=== PATIENT | female | born 1960 | race Hispanic/Latino ===

== ENCOUNTER 2024-12-20 06:11 | Day surgery (SDC) | payer OTHER, MEDICARE ==
[2024-12-19 16:28] VITALS: BP 154/80; PULSE 99; RESP 18; TEMP 98.1
[2024-12-19 16:32] LABS: NUCLEATED RED BLOOD CELLS 0.0 % (0.0-0.19); PLATELET COUNT (AUTO) 201.0 K/uL (130-400); RED BLOOD CELL COUNT(AUTO) 3.33 MIL/uL (4.00-5.50); RED CELL DISTRIBUTION WIDTH 14.4 % (11.0-15.5); WHITE BLOOD COUNT (AUTO) 7.4 K/uL (4.8-10.8)
[2024-12-19 16:41] LABS: INR 1.08 (0.85-1.15)
[2024-12-19 16:42] LABS: CREATININE 5.4 mg/dL (0.5-1.0); GLOMERULAR FILTR. RATE CALC 8.0 mL/min (>90); GLUCOSE,RANDOM 97.0 mg/dL (70-105); SODIUM SERUM 136.0 mmol/L (136-145); UREA NITROGEN, BLOOD 25.0 mg/dL (7-18)
--- NOTE | 2024-12-19 19:42 | HMCIMG ---
EXAM: CR Chest, 1 View. CLINICAL HISTORY: R COMPARISON: None provided. FINDINGS: LUNGS: There is no mass, infiltrate, or acute pulmonary abnormality. PLEURAL SPACES: No pleural effusion or pneumothorax. MEDIASTINUM: Cardiac silhouette prominent BONES: No acute osseous abnormality. MISCELLANEOUS: Left venous line middle third SVC IMPRESSION: 1. Cardiac silhouette prominent 2. Left venous line middle third SVC /[place]
[~2024-12-20] VITALS: Ht 157.5 cm; Wt 93.8 kg
[2024-12-20] VITALS (17 sets, daily range): BP systolic 92–146; BP diastolic 38–61; PULSE 72–100; RESP 15–20; TEMP 97.5–97.9
[~2024-12-20 06:11] MED LIST: CINA30 PO; FAMO20TA8 PO; LOSA100T59 PO; OMEGA PO; SEVELAMER CARBONATE PO
--- NOTE | 2024-12-20 06:34 | EKG ---
[facility] Test Date: 2024-12-19 Test Time: 16:16:03 Pat Name: DOROTHY RAYMUNDO Department: [facility], [facility] Room: [facility] Gender: F Lead Inspector: [id number] : 1960 Requested By: GILBERT CARMEN Order Number: [id number] Reading MD: Treovr Hsieh Measurements Intervals [place] Rate: 101 P: 0 NV: 0 QRS: 13 QRSD: 84 T: 0 QT: 370 QTc: 481 Interpretive Statements Atrial fibrillation Low voltage, precordial leads Consider anterior infarct No previous ECG available for comparison Electronically Signed On 12-20-2024 12:02:44 CDT by Trevor Hsieh Please click the below link to view image of tracing.
[2024-12-20 07:18] LABS: CREATININE 6.9 mg/dL (0.5-1.0); GLOMERULAR FILTR. RATE CALC 6.0 mL/min (>90); GLUCOSE,RANDOM 91.0 mg/dL (70-105); SODIUM SERUM 133.0 mmol/L (136-145); UREA NITROGEN, BLOOD 36.0 mg/dL (7-18)
[2024-12-20] MEDS: 0.9% NACL 500ML IV.SOLN 500 ML IV ONE (07:23)
[2024-12-20] MEDS: CLINDAMYCIN IVPB 600MG/50ML 50 ML IV ONE (07:23)
[2024-12-20] MEDS ORDERED: HEParin-NS 1,000 UNIT/500 ML 500 ML IV ONE (08:25)
[2024-12-20] MEDS ORDERED: VANCOMYCIN 1G/250ML KIT 250 ML IV ONE (08:25)
[2024-12-20] MEDS ORDERED: LIDOCAINE PF 100MG/5ML (2%) SYRINGE 5ML ONE ×2 (08:32→08:35)
[2024-12-20] MEDS ORDERED: SUCCINYLCHOLINE CHLORIDE 20 MG/ML 10 ML VIAL ONE (08:33)
[2024-12-20] MEDS ORDERED: GLYCOPYRROLATE 0.2 MG/ML 5 ML VIAL ONE (08:33)
[2024-12-20] MEDS ORDERED: NEOSTIGMINE METHYLSULFATE 1MG/ML IV ONE (08:34)
[2024-12-20] MEDS: VANCOMYCIN 1G VIAL IRRIG ONE (09:16)
[2024-12-20] MEDS ORDERED: SUGAMMADEX SODIUM 200 MG/2 ML VIAL IV ONE (09:35)
[2024-12-20] MEDS ORDERED: BACITRACIN 28.4 GM OINT TP ONE (10:31)
--- NOTE | 2024-12-20 11:05 | OP ---
DATE OF PROCEDURE: 12/20/2024 PREOPERATIVE DIAGNOSIS: Right upper extremity arteriovenous fistula aneurysms. POSTOPERATIVE DIAGNOSIS: Right upper extremity arteriovenous fistula aneurysms. PROCEDURE PERFORMED: Right AV fistula aneurysm morphing. OPERATING SURGEON: Dc Regan MD FIELD NATURALIST: Savanah Quezada. ANESTHESIOLOGIST: Dr. López. TYPE OF ANESTHESIA: General endotracheal anesthesia. BRIEF HISTORY: The patient is a 64-year-old female with a longstanding right upper extremity AV fistula. There are two aneurysmal segments on the venous aspect of the AV fistula with scabbing and skin breakdown on the largest aspect. She presents now for aneurysmorphy. FINDINGS: The patient had two large aneurysms. These were partially calcified. DESCRIPTION OF PROCEDURE: The patient was brought to the operating room and placed on the operating table in the supine position. She was given endotracheal anesthesia. After placement of lines and catheters, her right arm was prepped and draped in the usual sterile fashion. Two elliptical incisions, which were joined together, were then made over the aneurysms. The aneurysms were dissected out and clamps were placed on the anterior wall of both aneurysms and the anterior de la curz were excised and sent to pathology. The anterior wall of the aneurysm was then closed with 2 layers of running 5-0 Prolene suture. The clamps were released. Hemostasis was maintained and the wounds were irrigated with Betadine. The subcutaneous tissues were closed over the repaired aneurysm with a running Vicryl suture and the skin was closed with skin clips. The wounds were clean, dry, and covered with Band-Aids. The patient was undraped, extubated, and taken to the recovery room in stable condition. TID: [id number] RECEIPT: [id number]
--- NOTE | 2024-12-20 12:37 | NUR ---
Full and complete discharge instructions given to Patient and Family both verbally and in writing. Explained Surgical procedure precautions and follow up. AVF site clean dry and intact. No evidence of bleeding, bruising or hematoma. Discussed precations of AVF with all. Neurovascularly intact, All questions answered. PIV removed with catheter tip intact. Family at bedside appearing supportive. W/C to POV with Family to home
== END 2024-12-20 12:30 | disposition home or self-care (01) ==
LOC: DAH 06:11
PROVIDERS: ATTEND Thoracic Surgery (Cardiothoracic Vascular Surgery)
DX: I77.0 Arteriovenous fistula, acquired (principal); I12.0 Hypertensive chronic kidney disease with stage 5 chronic kidney disease or end stage renal disease; N18.6 End stage renal disease; E66.01 Morbid (severe) obesity due to excess calories; I48.91 Unspecified atrial fibrillation; Z88.0 Allergy status to penicillin; Z86.73 Personal history of transient ischemic attack (TIA), and cerebral infarction without residual deficits; Z68.37 Body mass index [BMI] 37.0-37.9, adult; Z79.899 Other long term (current) drug therapy
CPT/HCPCS: 80048 ×2; 85027; 85610; 85730; 86850; 86900; 86901; 36415 ×2; 71045; 93005; 35190; 88311; 88304; A6260; A4663; J7040 ×2; J3373 ×2; J3010; J3490 ×6; J1100; J0330; J2003 ×2; J2704 ×2; J2710; J1644; J2371 ×2; A4649 ×3; C1713; A4215; A4222; A4221; A4216; A4450; A4223 ×2